=== PATIENT | male | born 2000 | race Caucasian/White ===

== ENCOUNTER 2023-07-28 21:13 | Emergency (ER) | payer SELFPAY ==
[~2023-07-28] VITALS: Ht 175.3 cm; Wt 90.9 kg
[2023-07-28 21:30] VITALS: BP 118/69; RESP 16; TEMP 98.6; O2SAT 100
[2023-07-28 21:36] VITALS: PULSE 108
[2023-07-29] MEDS ORDERED: IBUP-2029 MT (02:06)
[2023-07-29] MEDS ORDERED: IBUPROFEN 600MG TABLET PO ONE (02:15)
== END 2023-07-29 03:15 | disposition home or self-care (01) ==
LOC: ER 21:13
DX: S60.221A Contusion of right hand, initial encounter (principal); X58.XXXA Exposure to other specified factors, initial encounter; Y93.89 Activity, other specified; Y92.89 Other specified places as the place of occurrence of the external cause; Y99.8 Other external cause status
CPT/HCPCS: 29125; 73110; 73120; 99284